=== PATIENT | female | born 1950 | race Caucasian/White ===

== ENCOUNTER 2019-04-22 16:15 | Observation (INO) | payer BC, MEDICARE ==
--- NOTE | 2019-04-22 17:10 | EDM.PDOC ---
ED HPI GENERAL MEDICAL PROBLEM - General Stated Complaint: TRANSFERRED VIA [facility] Time Seen by Provider: 04/22/19 17:00 Source of Information: Reports: Patient, EMS History Limitations: Reports: No Limitations - History of Present Illness INITIAL COMMENTS - FREE TEXT/NARRATIVE: 68-year-old female transferred from [place] with abdominal pain for the past 2 days to be evaluated by surgery with concerns of a bowel obstruction, possibly partial. She's been having pain for the past 2 days, especially on the left side of the abdomen with a lot of burping and decreased bowel movements. No fevers or chills. Onset: Gradual (the last 2-3 days she's had symptoms) Location: Reports: Abdomen Worsens with: Reports: Eating Associated Symptoms: Reports: No Other Symptoms - Related Data Allergies Allergy/AdvReac Type Severity Reaction Status Date / Time amoxicillin Allergy Diarrhea Verified 04/22/19 16:38 Home Meds: Home Meds Amitriptyline [Elavil] 200 mg PO BEDTIME 04/22/19 [History] Past Medical History HEENT History: Reports: Impaired Vision Hematologic History: Reports: B12 Deficiency Dermatologic History: Reports: Other (See Below) Other Dermatologic History: arasipalis - Infectious Disease History Infectious Disease History: Reports: Measles, Mumps - Past Surgical History GI Surgical History: Reports: Bariatric Procedure, Cholecystectomy, Colonoscopy , Hernia Repair/Other Other GI Surgeries/Procedures: had a colonoscopy on 04/02/19 Female Surgical History: Reports: Breast Biopsy, Hysterectomy Social & Family History - Tobacco Use Smoking Status *Q: Never Smoker - Caffeine Use Caffeine Use: Reports: Coffee, Soda, Tea - Recreational Drug Use Recreational Drug Use: No ED ROS GENERAL - Review of Systems Review Of Systems: See Below Constitutional: Denies: Fever, Chills Respiratory: Denies: Shortness of Breath, Cough Cardiovascular: Denies: Chest Pain GI/Abdominal: Reports: Abdominal Pain, Nausea, Other (decreased bowel movements) . Denies: Diarrhea Skin: Reports: No Symptoms ED EXAM, GENERAL - Physical Exam Exam: See Below Exam Limited By: No Limitations General Appearance: Alert, No Apparent Distress Eye Exam: Bilateral Eye: Normal Inspection Head: Atraumatic Respiratory/Chest: No Respiratory Distress, Lungs Clear Cardiovascular: Regular Rate, Rhythm GI/Abdominal: Normal Bowel Sounds, Tender (some tenderness palpation across the upper abdomen especially the left side, no significant distention) Extremities: No: Pedal Edema Neurological: Alert, Oriented Psychiatric: Normal Affect, Normal Mood Skin Exam: Warm, Dry Course - Vital Signs Last Recorded V/S: Last Vital Signs Temp 97.1 F 04/23/19 03:00 Pulse 50 L 04/23/19 03:00 Resp 18 04/23/19 03:00 BP 131/71 04/23/19 03:00 Pulse Ox 99 04/23/19 03:00 - Orders/Labs/Meds Orders: Medication Orders Amitriptyline HCl (Elavil) 200 mg PO BEDTIME ADRYAN Last Admin: 04/22/19 23:17 Dose: 200 mg Fentanyl (Sublimaze) 25 mcg IV Q3H PRN PRN Reason: pain Fentanyl (Sublimaze) 25 mcg IVPUSH Q3H PRN PRN Reason: Pain (severe 7-10) Dextrose/Lactated Ringer's (Dextrose 5%-Lactated Ringers) 1,000 mls @ 125 mls/ hr IV ASDIRECTED [facility] Last Admin: 04/23/19 03:39 Dose: 125 mls/hr Infusion: 04/23/19 03:31 Dose: 125 mls/hr Admin: 04/22/19 19:31 Dose: 125 mls/hr Ondansetron HCl (Zofran) 4 mg IVPUSH Q6H PRN PRN Reason: Nausea Meds: Medications Generic Name Dose Route Start Last Admin Trade Name Freq PRN Reason Stop Dose Admin Amitriptyline HCl 200 mg 04/22/19 21:00 04/22/19 23:17 Elavil PO 200 mg BEDTIME ADRYAN Administration Fentanyl 25 mcg 04/22/19 19:06 Sublimaze IV Q3H PRN pain Fentanyl 25 mcg 04/22/19 19:15 Sublimaze IVPUSH Q3H PRN Pain (severe 7-10) Dextrose/Lactated Ringer's 1,000 mls @ 125 mls/hr 04/22/19 19:15 04/23/19 03: 39 Dextrose 5%-Lactated Ringers IV 125 mls/hr ASDIRECTED ADRYAN Administration Ondansetron HCl 4 mg 04/22/19 19:05 Zofran IVPUSH Q6H PRN Nausea - Re-Assessments/Exams Free Text/Narrative Re-Assessment/Exam: 04/22/19 17:10 Discussed her condition with Dr. Zamora, a CT the abdomen and pelvis without contrast was recommended. This was ordered. 04/22/19 19:00 CT the abdomen was actually fairly nonspecific, patient remained pretty comfortable. She'll be admitted as an outpatient and surgically evaluated in the a.m. She'll continue her regular medications while in the hospital along with Zofran for when necessary nausea and IV fentanyl for when necessary pain. CBC and BMP in a.m. Departure - Departure Time of Disposition: 19:29 Disposition: Admitted As Inpatient 67 Condition: Good Clinical Impression: Abdominal pain Qualifiers: Abdominal location: upper abdomen, unspecified Qualified Code(s): R10.10 - Upper abdominal pain, unspecified - Discharge Information
--- NOTE | 2019-04-22 18:03 | CRLCT ---
HISTORY: Abdominal pain. TECHNIQUE: CT abdomen and pelvis without contrast. COMPARISON: None. FINDINGS: Abdomen: Unenhanced liver, pancreas, spleen, and adrenal glands are unremarkable. 5.7 cm left renal cyst. Moderate right pyelocaliectasis without ureteral dilation. 3 mm nonobstructing calculus in the mid right kidney. Smaller stones or stone debris in a few additional calices on the right. No left collecting system dilation. No bladder calculi. Gastric bypass. No dilated bowel. No acute appendicitis. Mild colonic diverticulosis. No free fluid. No free intraperitoneal gas. Probable ventral hernia repair. Small fat containing ventral hernia at the superior margin of the suspected hernia repair. No lymphadenopathy. Mild atherosclerotic calcification. Abdominal aorta is not dilated. Pelvis: Uterus is absent. Phleboliths. No lymphadenopathy. Musculoskeletal: Osteopenia. Degenerative changes of the spine. Lower chest: Minimal atelectasis or scarring in both lung bases. 5 mm noncalcified pulmonary nodule in the right middle lobe (series 2 image 4). IMPRESSION: 1. Moderate right pyelocaliectasis without ureteral dilation suggestive of ureteropelvic junction obstruction, possibly chronic. Small nonobstructing right renal calculi. 2. Probable ventral hernia repair. Small fat containing ventral hernia at the superior margin of the suspected repair. 3. Colonic diverticulosis. 4. 5 mm pulmonary nodule in the right lung base. If patient is high risk for malignancy, consider follow-up chest CT in 12 months. Dictated by Reymundo Guidry MD @ 04/22/2019 6:02:25 PM Please note that all CT scans at this facility use dose modulation, iterative reconstruction, and/or weight-based dosing when appropriate to reduce radiation dose to as low as reasonably achievable. Dictated by: Reymundo Guidry MD @ 04/22/2019 18:02:30 (Electronically Signed)
[2019-04-22] MEDS ORDERED: Ondansetron 4 MG/2 ML SDV IVPUSH PRN (19:05)
[2019-04-22] MEDS ORDERED: fentaNYL 100 MCG/2 ML SDV IV PRN (19:06)
[2019-04-22] MEDS ORDERED: fentaNYL 100 MCG/2 ML SDV IVPUSH PRN (19:15)
[2019-04-22] MEDS: Dextrose 5%-Lactated Ringers 1,000 ML IV SCH (19:31)
[2019-04-22] MEDS ORDERED: AMITRIPTYLINE 50 MG PO SCH (21:00)
[2019-04-23] MEDS: Dextrose 5%-Lactated Ringers 1,000 ML IV SCH (03:39)
[2019-04-23] MEDS ORDERED: Acetaminophen 325 MG Tab PO PRN (07:46)
[2019-04-23] MEDS ORDERED: Cyanocobalamin (Vitamin B12) 1,000 MCG/ML SDV IM ONE (09:30)
--- NOTE | 2019-04-25 13:40 | DISCH ---
FINAL DIAGNOSIS: Probable small bowel obstruction, spontaneously resolved. SECONDARY DIAGNOSES: 1. Bariatric surgery status. 2. Asymptomatic recurrence of incisional hernia. 3. Marginally low B12 level. 4. A 5 mm right pulmonary nodule. 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 Radiologic workup included plain abdominal x-rays, rather than a CT scan. Her present provider, Dr. Walls, who has dealt with her gastric bypass problems in the past, was not available, and the patient was transferred here for further care. Upon arriving here, she appeared to have likely resolved the bowel obstruction. The patient was having no abdominal pain or significant distention and CT scan showing no evidence of bowel obstruction. The CT scan did show some uncomplicated stones in the right kidney hilum and small asymptomatic recurrence of incisional hernia and a 5 mm pulmonary nodule, the latter was recommended to be followed up with CT scan in roughly 12 months. Overnight, the patient has eaten a solid diet without problems and did move her bowels. Her abdomen is entirely soft and nondistended this morning. The plan will be to have the patient discharged home. She will be instructed to maintain a mechanical soft or low- residue diet for about 2 weeks and then resume more usual diet. She did have her B12 level in lower range of normal and 1000 mcg B12 injection was given. Her ferritin level was also checked and that was 49, which is well within the normal range. She will be instructed to continue her current medications, including amitriptyline, and encouraged resuming supplements in terms of multivitamins, calcium, and iron. She is instructed to touch base with Dr. Walls in Clinic for surgical followup in about a week or so.
== END 2019-04-23 14:26 | disposition home or self-care (01) ==
LOC: JP.ED 16:15 → UNDOADMIN 19:01 → JP.MS 19:01 → UNDOADMOB 19:01 → UNDODISOB 04-23 12:17 → UNDODISIN 04-23 14:26
PROVIDERS: ADMIT Surgery; ATTEND Surgery
DX: R10.12 Left upper quadrant pain (principal); R10.812 Left upper quadrant abdominal tenderness; R11.2 Nausea with vomiting, unspecified; R91.1 Solitary pulmonary nodule; N20.0 Calculus of kidney; E53.8 Deficiency of other specified B group vitamins; I25.10 Atherosclerotic heart disease of native coronary artery without angina pectoris; K43.2 Incisional hernia without obstruction or gangrene; K21.9 Gastro-esophageal reflux disease without esophagitis; K58.9 Irritable bowel syndrome, unspecified; K57.30 Diverticulosis of large intestine without perforation or abscess without bleeding; G47.33 Obstructive sleep apnea (adult) (pediatric); M17.0 Bilateral primary osteoarthritis of knee; E66.01 Morbid (severe) obesity due to excess calories; Z68.32 Body mass index [BMI] 32.0-32.9, adult; Z88.0 Allergy status to penicillin; Z98.84 Bariatric surgery status; Z87.891 Personal history of nicotine dependence; Z79.51 Long term (current) use of inhaled steroids; Z79.899 Other long term (current) drug therapy
CPT/HCPCS: 36415; 74176; 80048; 82607; 82728; 85027; A9270; J3420; J7042; 96360; 96361; 96372; G0378

== ENCOUNTER 2019-11-13 19:24 | Inpatient (IN) | payer MEDICARE, OTHER ==
[2019-11-13] MEDS ORDERED: Ondansetron 4 MG/2 ML SDV IV PRN (20:14)
[2019-11-13] MEDS ORDERED: Sodium Chloride 0.9% 10 ML Syringe FLUSH PRN (20:14)
[2019-11-13] MEDS ORDERED: Lactated Ringers 1,000 ML IV SCH (20:15)
[2019-11-13] MEDS ORDERED: Heparin Sodium/D5W 25,000 UNITS/500 ML BAG IV SCH (20:30)
[2019-11-13] MEDS ORDERED: Heparin Sodium 5,000 Units/ML Vial IVPUSH ONE (20:38)
--- NOTE | 2019-11-13 20:46 | PCM.HP.2 ---
H&P History of Present Illness - General Date of Service: 11/13/19 Admit Problem/Dx: Admission Diagnosis/Problem Admission Diagnosis/Problem Thrombosis of mesenteric vein Source of Information: Patient, Old Records, Provider History Limitations: Reports: No Limitations - History of Present Illness Initial Comments - Free Text/Narative: This 68 year old white female had a RNY GBP in [place] in 2009. She was admitted to Health [facility] in [place], [place] four days ago with left flank pain and left lower quadrant abdominal pain. She was started on a clear liquid diet which she tolerated, but when advanced to regular she had abdominal pain. She was made NPO. She has a surgeon who is willing to care for her in [place] (he has corrected internal hernias and incisional hernias in the past). He, however, is out of town now, so a request was made to transfer her here to [place]. She drove herself down here! A CT scan obtained in [place] showed a SMV thrombosis! She takes Coumadin, but has had none since Wednesday until today. Her INR was 1.[address] [place] scan also was suggestive of an internal hernia, but she looks absolutely benign with normal bowel sounds , no distress what so ever, and no tenderness in her abdomen. She is admitted her to anticoagulate her better with heparin while her warfarin takes better effect. She will be kept NPO tonight. Onset of Symptoms: Reports: Gradual Symptom Onset Date: 11/09/19 Symptom Onset Time: 18:00 Duration of Symptoms: Reports: Day(s):, Improving Location: Reports: Abdomen Quality: Reports: Ache Severity: Mild (Was severe earlier.) Improves with: Reports: None Worsens with: Reports: Eating Context: Reports: Other (Left flank pain. ) - Related Data Allergies/Adverse Reactions: Allergies Allergy/AdvReac Type Severity Reaction Status Date / Time amoxicillin Allergy Diarrhea Verified 04/22/19 16:38 Home Medications: Home Meds Amitriptyline [Elavil] 200 mg PO BEDTIME 04/22/19 [History] Ferrous Sulfate [Iron] 1 tab PO DAILY 11/13/19 [History] Warfarin Sodium [Coumadin] 5 mg PO ASDIRECTED 11/13/19 [History] Warfarin Sodium [Coumadin] 7.5 mg PO ASDIRECTED 11/13/19 [History] Past Medical History HEENT History: Reports: Impaired Vision Gastrointestinal History: Reports: Bowel Obstruction (Operated on for bowel obstruction in [place], [place] in the past.), Cholelithiasis (Cholecystectomy), Other (See Below) (History of RNY GBP in 2009 in [place], [place].) Hematologic History: Reports: B12 Deficiency Dermatologic History: Reports: Other (See Below) Other Dermatologic History: arasipalis - Infectious Disease History Infectious Disease History: Reports: Measles, Mumps - Past Surgical History GI Surgical History: Reports: Bariatric Procedure, Cholecystectomy, Colonoscopy , Hernia Repair/Other Other GI Surgeries/Procedures: had a colonoscopy on 04/02/19 Female Surgical History: Reports: Breast Biopsy, Hysterectomy Social & Family History - Family History Oncologic: Reports: Colon, Other (See Below) (Hematologic) - Caffeine Use Caffeine Use: Reports: Coffee, Soda, Tea H&P Review of Systems - Review of Systems: Review Of Systems: See Below General: Reports: No Symptoms HEENT: Reports: No Symptoms Pulmonary: Reports: No Symptoms Cardiovascular: Reports: No Symptoms Gastrointestinal: Reports: Flatus, Other (Had BM in [place], [place] while driving here to [place]. ). Denies: Abdominal Pain (Abdominal pain resolved. ) Genitourinary: Reports: No Symptoms Musculoskeletal: Reports: No Symptoms Skin: Reports: No Symptoms Psychiatric: Reports: No Symptoms Neurological: Reports: No Symptoms Hematologic/Lymphatic: Reports: No Symptoms Immunologic: Reports: No Symptoms Exam - Exam Exam: See Below - Exam Quality Assessment: Other (Anticoagulated, but INR only 1.8 in [place]. ) General: Alert, Oriented, Cooperative, Other (No distress. Appears comfortable. ). No: Mild Distress, Moderate Distress, Severe Distress Lungs: Clear to Auscultation, Normal Respiratory Effort Cardiovascular: Regular Rate, Regular Rhythm, Systolic Murmur GI/Abdominal Exam: Normal Bowel Sounds, Soft, Non-Tender Back Exam: Normal Inspection Extremities: Pedal Edema (Had compression hose on. ) Skin: Warm, Dry, Intact Neuro Extensive - Mental Status: Alert, Oriented x3, Normal Mood/Affect Psychiatric: Alert, Normal Affect, Normal Mood - Problem List (1) Thrombosis SNOMED Code(s): 988345579 ICD Code: I82.90 - ACUTE EMBOLISM AND THROMBOSIS OF UNSPECIFIED VEIN Status : Acute Current Visit: Yes (2) Abdominal pain SNOMED Code(s): 06766810 ICD Code: R10.9 - UNSPECIFIED ABDOMINAL PAIN Status: Acute Current Visit : No Qualifiers: Abdominal location: upper abdomen, unspecified Qualified Code(s): R10.10 - Upper abdominal pain, unspecified Problem List Initiated/Reviewed/Updated: Yes Orders Last 24hrs: Active Orders 24 hr Category Date Time Status Patient Status [ADT] Routine ADT 11/13/19 20:26 Ordered Anticoag Warfarin Education *Q [RC] DAILY Care 11/13/19 20:14 Ordered Height and Weight [RC] DAILY Care 11/13/19 20:14 Ordered Intake and Output [RC] QSHIFT Care 11/13/19 20:28 Ordered May Shower [RC] ASDIRECTED Care 11/13/19 20:14 Ordered Notify Provider Consults [RC] ASDIRECTED Care 11/13/19 20:34 Ordered Notify Provider Vital Signs [RC] ASDIRECTED Care 11/13/19 20:28 Ordered Oxygen Therapy [RC] PRN Care 11/13/19 20:26 Ordered Peripheral IV Care [RC] . DIRECTED Care 11/13/19 20:30 Ordered Up ad Lisa [RC] ASDIRECTED Care 11/13/19 20:14 Ordered VTE/DVT Education [RC] Per Unit Routine Care 11/13/19 20:26 Ordered Vital Signs [RC] Q4H Care 11/13/19 20:26 Ordered Consult to Physician [CONS] Routine Cons 11/14/19 07:00 Ordered Nothing per Oral Now Diet [DIET] Diet 11/13/19 Dinner Ordered CBC W/O DIFF,HEMOGRAM [HEME] DAILY Lab 11/14/19 05:11 Ordered CBC W/O DIFF,HEMOGRAM [HEME] DAILY Lab 11/15/19 05:11 Ordered CBC W/O DIFF,HEMOGRAM [HEME] DAILY Lab 11/16/19 05:11 Ordered CBC W/O DIFF,HEMOGRAM [HEME] Stat Lab 11/13/19 20:14 Ordered COMPREHENSIVE METABOLIC PN,CMP [CHEM] Stat Lab 11/13/19 20:14 Ordered INR,PT,PROTHROMBIN TIME [COAG] DAILY Lab 11/14/19 05:11 Ordered INR,PT,PROTHROMBIN TIME [COAG] DAILY Lab 11/15/19 05:11 Ordered INR,PT,PROTHROMBIN TIME [COAG] DAILY Lab 11/16/19 05:11 Ordered INR,PT,PROTHROMBIN TIME [COAG] Stat Lab 11/13/19 20:14 Ordered PTT,PARTIAL THROMBOPLSTIN TIME [COAG] DAILY Lab 11/14/19 05:11 Ordered PTT,PARTIAL THROMBOPLSTIN TIME [COAG] DAILY Lab 11/15/19 05:11 Ordered PTT,PARTIAL THROMBOPLSTIN TIME [COAG] DAILY Lab 11/16/19 05:11 Ordered PTT,PARTIAL THROMBOPLSTIN TIME [COAG] Stat Lab 11/13/19 20:14 Ordered PTT,PARTIAL THROMBOPLSTIN TIME [COAG] Stat Lab 11/13/19 20:30 Ordered Heparin Sodium Med 11/13/19 20:38 Once 5,000 units IVPUSH ONETIME ONE Heparin Sodium/D5W [Heparin 25,000 Units in D5W 500 ML] Med 11/13/19 20:30 Ordered 25,000 units in 500 ml IV TITRATE Lactated Ringers @ 125 MLS/HR(1000ml) Med 11/13/19 20:15 Ordered Lactated Ringers [Ringers, Lactated] 1,000 ml IV ASDIRECTED Ondansetron [Zofran] Med 11/13/19 20:14 Ordered 4 mg IV Q6H PRN Sodium Chloride 0.9% [Saline Flush] Med 11/13/19 20:14 Ordered 10 ml FLUSH ASDIRECTED PRN Warfarin [Coumadin] Med 11/14/19 13:00 Ordered 7.5 mg PO DAILY@1300 Peripheral IV Insertion Adult [OM.PC] Routine Oth 11/13/19 20:14 Ordered Resuscitation Status Routine Resus Stat 11/13/19 20:14 Ordered Medication Orders Heparin Sodium (Porcine) (Heparin Sodium) 5,000 units IVPUSH ONETIME ONE Stop: 11/13/19 20:39 Heparin Sodium/Dextrose (Heparin 25,000 Units In D5w 500 Ml) 25,000 units in 500 mls @ 0 mls/hr IV TITRATE ADRYAN; Protocol Lactated Ringer's (Ringers, Lactated) 1,000 mls @ 125 mls/hr IV ASDIRECTED ADRYAN Ondansetron HCl (Zofran) 4 mg IV Q6H PRN PRN Reason: Nausea/Vomiting Sodium Chloride (Saline Flush) 10 ml FLUSH ASDIRECTED PRN PRN Reason: Keep Vein Open Warfarin Sodium (Coumadin) 7.5 mg PO DAILY@1300 [facility] Assessment/Plan Comment:: She has a benign appearing abdomen. There is thrombus seen in her SMV. Her INR is only 1.8 and she is chronically anticoagulated do to DVT. She will be anticoagulated further with heparin while her warfarin takes effect. NPO tonight. - Mortality Measure Prognosis:: Good
[2019-11-13] MEDS: Dextrose 5%-Lactated Ringers 1,000 ML IV SCH (22:02)
[2019-11-14] MEDS: Dextrose 5%-Lactated Ringers 1,000 ML IV SCH ×2 (04:26→13:13)
--- NOTE | 2019-11-14 05:49 | PCM.PN ---
- General Info Date of Service: 11/14/19 Admission Dx/Problem (Free Text): SMV Thrombosis Functional Status: Reports: Pain Controlled, Ambulating, Urinating. Denies: Tolerating Diet (NPO) - Review of Systems General: Reports: No Symptoms HEENT: Reports: No Symptoms Pulmonary: Reports: No Symptoms Cardiovascular: Reports: No Symptoms Gastrointestinal: Reports: Other (Some left flank pain. Having BM's) Genitourinary: Reports: No Symptoms Musculoskeletal: Reports: No Symptoms Skin: Reports: No Symptoms Neurological: Reports: No Symptoms Psychiatric: Reports: No Symptoms - Patient Data Vitals - Most Recent: Last Vital Signs Temp 95.0 F L 11/14/19 03:00 Pulse 72 11/14/19 03:00 Resp 16 11/14/19 03:00 BP 147/91 H 11/14/19 03:00 Pulse Ox 99 11/14/19 03:00 Weight - Most Recent: 203 lb 7.787 oz I&O - Last 24 Hours: Intake & Output 11/13/19 11/13/19 11/14/19 14:59 22:59 06:59 Intake Total 1000 Output Total 500 Balance 500 Lab Results Last 24 Hours: Laboratory Results - last 24 hr 11/13/19 11/13/19 11/13/19 Range/Units 20:40 20:40 20:40 WBC 5.0 (4.5-11.0) K/uL RBC 3.93 (3.30-5.50) M/uL Hgb 12.2 (12.0-15.0) g/dL Hct 39.3 (36.0-48.0) % MCV 100 H (80-98) fL MCH 31 (27-31) pg MCHC 31 L (32-36) % Plt Count 205 (150-400) K/uL PT 15.1 H (9.5-12.0) sec INR 1.43 H (0.80-1.20) APTT 29.2 (27.0-36.0) sec Sodium 141 (140-148) mmol/L Potassium 3.4 L (3.6-5.2) mmol/L Chloride 104 (100-108) mmol/L Carbon Dioxide 28 (21-32) mmol/L Anion Gap 12.4 (5.0-14.0) mmol/L BUN 5 L (7-18) mg/dL Creatinine 0.6 (0.6-1.0) mg/dL Est Cr Clr Drug Dosing 85.18 mL/min Estimated GFR (MDRD) > 60 (>60) Glucose 109 H (74-106) mg/dL Calcium 8.2 L (8.5-10.1) mg/dL Total Bilirubin 0.6 (0.2-1.0) mg/dL AST 22 (15-37) U/L ALT 33 (12-78) U/L Alkaline Phosphatase 108 (46-116) U/L Total Protein 6.1 L (6.4-8.2) g/dL Albumin 3.0 L (3.4-5.0) g/dL Globulin 3.1 (2.3-3.5) g/dL Albumin/Globulin Ratio 1.0 L (1.2-2.2) 11/14/19 11/14/19 11/14/19 Range/Units 03:33 03:33 03:33 WBC 4.8 (4.5-11.0) K/uL RBC 3.61 (3.30-5.50) M/uL Hgb 11.2 L (12.0-15.0) g/dL Hct 36.3 (36.0-48.0) % MCV 101 H (80-98) fL MCH 31 (27-31) pg MCHC 31 L (32-36) % Plt Count 190 (150-400) K/uL PT 16.3 H (9.5-12.0) sec INR 1.55 H (0.80-1.20) APTT 110.5 H* (27.0-36.0) sec Sodium (140-148) mmol/L Potassium (3.6-5.2) mmol/L Chloride (100-108) mmol/L Carbon Dioxide (21-32) mmol/L Anion Gap (5.0-14.0) mmol/L BUN (7-18) mg/dL Creatinine (0.6-1.0) mg/dL Est Cr Clr Drug Dosing mL/min Estimated GFR (MDRD) (>60) Glucose (74-106) mg/dL Calcium (8.5-10.1) mg/dL Total Bilirubin (0.2-1.0) mg/dL AST (15-37) U/L ALT (12-78) U/L Alkaline Phosphatase (46-116) U/L Total Protein (6.4-8.2) g/dL Albumin (3.4-5.0) g/dL Globulin (2.3-3.5) g/dL Albumin/Globulin Ratio (1.2-2.2) Med Orders - Current: Current Medications Amitriptyline HCl (Elavil) 200 mg PO BEDTIME ADRYAN Last Admin: 11/13/19 22:01 Dose: 200 mg Heparin Sodium (Porcine) (Heparin Sodium) 5,000 units IVPUSH ONETIME ONE Stop: 11/13/19 20:39 Last Admin: 11/13/19 21:36 Dose: 5,000 units Heparin Sodium/Dextrose (Heparin 25,000 Units In D5w 500 Ml) 25,000 units in 500 mls @ 26 mls/hr IV TITRATE ADRYAN; Protocol Last Titration: 11/14/19 05:06 Dose: 1,010 units/hr, 20.2 mls/hr Dextrose/Lactated Ringer's (Dextrose 5%-Lactated Ringers) 1,000 mls @ 125 mls/ hr IV ASDIRECTED ADRYAN Last Admin: 11/14/19 04:26 Dose: 125 mls/hr Ondansetron HCl (Zofran) 4 mg IV Q6H PRN PRN Reason: Nausea/Vomiting Sodium Chloride (Saline Flush) 10 ml FLUSH ASDIRECTED PRN PRN Reason: Keep Vein Open Warfarin Sodium (Coumadin) 7.5 mg PO DAILY@1300 ADRYAN Discontinued Medications Lactated Ringer's (Ringers, Lactated) 1,000 mls @ 125 mls/hr IV ASDIRECTED ADRYAN - Exam Quality Assessment: DVT Prophylaxis (Fully anticoagulated) General: Alert, Oriented, Cooperative, No Acute Distress Lungs: Clear to Auscultation Cardiovascular: Regular Rate, Regular Rhythm, Murmurs GI/Abdominal Exam: Normal Bowel Sounds, Soft, Non-Tender Back Exam: Normal Inspection Skin: Warm, Dry, Intact Neurological: No New Focal Deficit Psy/Mental Status: Alert, Normal Affect, Normal Mood Sepsis Event Note - Evaluation Sepsis Screening Result: No Definite Risk - Focused Exam Vital Signs: Vital Signs Temp Pulse Resp BP Pulse Ox 11/14/19 03:00 95.0 F L 72 16 147/91 H 99 11/13/19 23:46 97.5 F 67 16 130/78 96 11/13/19 20:26 97 F 81 18 150/82 H 98 Date Exam was Performed: 11/14/19 Time Exam was Performed: 05:47 - Problem List & Annotations (1) Thrombosis SNOMED Code(s): 285836554 Code(s): I82.90 - ACUTE EMBOLISM AND THROMBOSIS OF UNSPECIFIED VEIN Status : Acute Current Visit: Yes (2) Abdominal pain SNOMED Code(s): 41454415 Code(s): R10.9 - UNSPECIFIED ABDOMINAL PAIN Status: Acute Current Visit: No Qualifiers: Abdominal location: upper abdomen, unspecified Qualified Code(s): R10.10 - Upper abdominal pain, unspecified - Problem List Review Problem List Initiated/Reviewed/Updated: Yes - My Orders Last 24 Hours: My Active Orders 11/13/19 20:14 Anticoag Warfarin Education *Q [RC] DAILY Height and Weight [RC] DAILY May Shower [RC] ASDIRECTED Up ad Lisa [RC] ASDIRECTED Ondansetron [Zofran] 4 mg IV Q6H PRN Sodium Chloride 0.9% [Saline Flush] 10 ml FLUSH ASDIRECTED PRN Peripheral IV Insertion Adult [OM.PC] Routine Resuscitation Status Routine 11/13/19 20:26 Patient Status [ADT] Routine Oxygen Therapy [RC] PRN VTE/DVT Education [RC] Per Unit Routine Vital Signs [RC] Q4H 11/13/19 20:28 Intake and Output [RC] QSHIFT Notify Provider Vital Signs [RC] ASDIRECTED 11/13/19 20:30 Peripheral IV Care [RC] . DIRECTED Heparin Sodium/D5W [Heparin 25,000 Units in D5W 500 ML] 25,000 units in 500 ml IV TITRATE 11/13/19 20:34 Notify Provider Consults [RC] ASDIRECTED 11/13/19 20:38 Heparin Sodium 5,000 units IVPUSH ONETIME ONE 11/13/19 21:43 Amitriptyline [Elavil] 200 mg PO BEDTIME 11/13/19 21:45 Dextrose 5%-Lactated Ringers 1,000 ml IV ASDIRECTED 11/13/19 Dinner Nothing per Oral Now Diet [DIET] 11/14/19 07:00 Consult to Physician [CONS] Routine 11/14/19 09:00 PTT,PARTIAL THROMBOPLSTIN TIME [COAG] Routine 11/14/19 13:00 Warfarin [Coumadin] 7.5 mg PO DAILY@1300 11/15/19 05:11 CBC W/O DIFF,HEMOGRAM [HEME] DAILY INR,PT,PROTHROMBIN TIME [COAG] DAILY PTT,PARTIAL THROMBOPLSTIN TIME [COAG] DAILY 11/16/19 05:11 CBC W/O DIFF,HEMOGRAM [HEME] DAILY INR,PT,PROTHROMBIN TIME [COAG] DAILY PTT,PARTIAL THROMBOPLSTIN TIME [COAG] DAILY - Assessment Assessment:: She is now fully anticoagulated. - Plan Plan:: She has a benign appearing abdomen. There is thrombus seen in her SMV. Her INR is only 1.8 and she is chronically anticoagulated do to DVT. She will be anticoagulated further with heparin while her warfarin takes effect. NPO tonight.
[2019-11-14] MEDS ORDERED: fentaNYL 250 MCG/5 ML SDV ONE ×2 (10:57→16:05)
[2019-11-14] MEDS ORDERED: Potassium Chloride 20 MEQ, Lidocaine 1% 2 ML in Sodium Chloride 0.9% 100 ML IV ONE (11:00)
[2019-11-14] MEDS ORDERED: Meropenem 500 MG SDV ONE (12:24)
[2019-11-14] MEDS ORDERED: Lidocaine 1% with EPINEPHrine 1:100,000 50 ML MDV ONE (12:25)
[2019-11-14] MEDS ORDERED: Bupivacaine 0.5% 50 ML MDV ONE (12:25)
[2019-11-14] MEDS ORDERED: Warfarin 2.5 MG Tab PO SCH (13:00)
[2019-11-14] MEDS ORDERED: cefOXitin 2 GM in Sodium Chloride 0.9% 50 ML IV ONE (16:00)
[2019-11-14] MEDS ORDERED: Ropivacaine 46 ML, dexAMETHasone 8 MG, EPINEPHrine 0.4 MG, Sodium Chloride 0.9% 31.6 ML NERVRT SCH ×4 (16:00)
[2019-11-14] MEDS ORDERED: Ketamine 50 MG in Sodium Chloride 0.9% 49.5 ML IV SCH (16:00)
[2019-11-14] MEDS ORDERED: Ketamine 500 MG/5 ML MDV IV SCH (16:00)
[2019-11-14] MEDS ORDERED: Lidocaine 2% 100 MG/5 ML Syringe IVPUSH SCH (16:00)
[2019-11-14] MEDS ORDERED: Glycopyrrolate 0.2 MG/ML 5 ML MDV ONE (16:30)
[2019-11-14] MEDS ORDERED: Dexamethasone 4 MG/ML SDV ONE (16:30)
[2019-11-14] MEDS ORDERED: Neostigmine Methylsulfate 1 MG/ML 5 ML Syringe ONE (16:30)
[2019-11-14] MEDS ORDERED: Ondansetron 4 MG/2 ML SDV ONE (16:30)
[2019-11-14] MEDS ORDERED: Propofol 200 MG/20 ML SDV ONE (16:30)
[2019-11-14] MEDS ORDERED: Rocuronium 50 MG/5 ML Vial ONE (16:30)
[2019-11-14] MEDS ORDERED: Succinylcholine 200 MG/10 ML MDV ONE (16:30)
[2019-11-14] MEDS ORDERED: Lidocaine 1% 2 ML ONE (17:03)
[2019-11-14] MEDS ORDERED: Lactated Ringers 1,000 ML ONE (17:43)
[2019-11-14] MEDS ORDERED: hydrOXYzine HCL 100 MG/2 ML SDV IM ONE (17:57)
[2019-11-14] MEDS ORDERED: fentaNYL 100 MCG/2 ML SDV IVPUSH ONE ×2 (17:58→18:23)
[2019-11-14] MEDS ORDERED: Meperidine PF 100 MG/ML Syringe IM ONE (18:27)
[2019-11-14] MEDS ORDERED: Dextrose 5%-Lactated Ringers 1,000 ML IV SCH ×3 (19:18→19:45)
[2019-11-14] MEDS ORDERED: hydrOXYzine HCL 100 MG/2 ML SDV IM PRN (19:34)
[2019-11-14] MEDS ORDERED: Metoclopramide 10 MG/2 ML SDV IVPUSH PRN (19:34)
[2019-11-14] MEDS ORDERED: diphenhydrAMINE 50 MG/ML SDV IVPUSH PRN (19:34)
[2019-11-14] MEDS ORDERED: Labetalol 20 MG/4 ML Syringe IVPUSH PRN (19:34)
[2019-11-14] MEDS ORDERED: MVI, Adult with Vitamin K 10 ML, Thiamine 200 MG, Chromium/Copper/Mang/Selen/Zn 1 ML in... IV SCH ×4 (19:34)
[2019-11-14] MEDS: Lidocaine 0.4%/D5W 2 GM/500 ML BAG IV SCH ×5 (19:43→20:24)
[2019-11-14] MEDS ORDERED: cefOXitin 2 GM in Sodium Chloride 0.9% 50 ML IV SCH (19:45)
[2019-11-14] MEDS: Ondansetron 4 MG/2 ML SDV IVPUSH PRN (19:56)
[2019-11-14] MEDS: cefOXitin 2 GM in Sodium Chloride 0.9% 50 ML IV SCH (20:08)
[2019-11-14] MEDS ORDERED: Heparin Sodium/D5W 500 ML IV SCH (20:15)
[2019-11-14] MEDS: Acetaminophen 325 MG Tab PO SCH (20:44)
[2019-11-14] MEDS ORDERED: HYDROmorphone 1 MG/ML Syringe IV PRN (20:44)
[2019-11-14] MEDS ORDERED: HYDROmorphone 0.5 MG/0.5 ML Syringe IVPUSH PRN (20:44)
[2019-11-14] MEDS ORDERED: Pantoprazole 40 MG Vial IVPUSH SCH (21:00)
[2019-11-15] MEDS: cefOXitin 2 GM in Sodium Chloride 0.9% 50 ML IV SCH ×4 (03:19→21:38)
[2019-11-15] MEDS ORDERED: Iopamidol 612 MG/ML 50 ML SDV PO STA (03:24)
[2019-11-15] MEDS: Acetaminophen 325 MG Tab PO SCH ×4 (04:03→21:45)
--- NOTE | 2019-11-15 04:19 | CRLCR ---
INDICATION: Status post Joyce-en-Y revision TECHNIQUE: Abdomen modified upper GI COMPARISON: None FINDINGS: Normal transit of oral contrast across the GE junction and into the small bowel with no evidence of leakage. IMPRESSION: No evidence for extravasation of contrast. Dictated by Flako Connors MD @ 11/15/2019 4:17:13 AM Dictated by: Flako Connors MD @ 11/15/2019 04:17:25 (Electronically Signed)
[2019-11-15] MEDS: Heparin Sodium/D5W 25,000 UNITS/500 ML BAG IV SCH ×2 (05:28→20:14)
[2019-11-15] MEDS ORDERED: Warfarin 5 MG Tab PO ONE (06:46)
[2019-11-15] MEDS ORDERED: Furosemide 20 MG/2 ML VIAL IVPUSH ONE (07:30)
[2019-11-15] MEDS ORDERED: Potassium Phosphates 3 mMole/ML 15 ML SDV SCH (08:00)
--- NOTE | 2019-11-15 08:01 | PN ---
DATE OF SERVICE: 11/15/2019 SUBJECTIVE: Leda is postoperative day #1. Vital signs have been stable. Her Yang catheter has been removed. She states she feels still has pain in her urethra from the Yang catheter. Upper GI this morning was normal. Continues to have lidocaine running. O2 sats were 94% to 98% on 2 L. She did need the oxygen and was not able to wear her CPAP due to some equipment on her tubing missing. LABORATORY DATA: Labs this morning, hemoglobin 11.8. PT 18.4, INR is 1.76, APTT is 46.2. Potassium is 3.4, phosphorus 3.3, and magnesium is 1.5. BNP is 1168. OBJECTIVE: GENERAL: Leda Iverson is a 69-year-old female. She is alert, orientated. VITAL SIGNS: Temperature from 0400 is 96.5, pulse at 0600 of 69, respirations 15, blood pressure 130/61, O2 saturations by pulse oximetry 98% on 2 L of O2. HEENT: Negative. NECK: Supple. HEART: Regular rate and rhythm. LUNGS: Clear. ABDOMEN: Dressings dry and intact. DIDI drain is draining a red drainage of 125 mL for the past 24 hours. Yang was removed. She has not voided yet. EXTREMITIES: SCDs are on and there is no peripheral edema. ASSESSMENT: 1. Exploratory laparotomy with: a. Reconstruction of small bowel volvulus with closure of internal hernia. b. Revision of the jejunojejunostomy component of the Joyce-en-Y gastric bypass. c. Repair of recurrent incarcerated incisional hernia. d. Removal of intraperitoneal mesh. e. Placement of Interceed mesh. f. Excision of abdominal wall hemangioma. POSTOPERATIVE DIAGNOSES: 1. Partial small bowel obstruction secondary to small bowel volvulus. 2. Decompression of small bowel at the jejunojejunostomy. 3. Excision of intraabdominal adhesions. 4. Recurrent incarcerated incisional hernia. 5. Potentially contaminated intraperitoneal mesh. 6. Bloody hemangioma, right upper abdominal wall 0.5 cm. Date of surgery: 11/14/2019. Surgeon: Payam Zamora MD. PLAN: 1. Call Dr. Payam Zamora with results of blood clotting labs and that will be done at 11:30 a.m. 2. Coumadin 7.5 mg p.o. one time today. 3. Communication order: 3 med cups per hour, 1 every 20 minutes, record at bed side. 4. Step 2 gastric bypass diet with no cereal. 5. Check CBC, CMP, phos, and BNP in a.m. 6. Decrease IV to 100 mL per hour. 7. Lasix 10 mg IV push one time. 8. Dilaudid 2 to 4 mg p.o. q.4 hours p.r.n. pain. 9. Magnesium sulfate 2 g IV q.6 hours x72 hours. 10.Zofran ODT 4 mg sublingual q.4 hours p.r.n. nausea and vomiting. 11.K-Phos 60 mEq orally 1 time today. 12.Discontinue IV Dilaudid and discontinue n.p.o. 13.Good pulmonary toilet. 14.We will evaluate p.r.n. or in a.m. Respiratory therapist will look at the CPAP machine and see what needs to be added, so she can use that in the hospital. Kat Lopez PA-C /[id number]
[2019-11-15] MEDS: Dextrose 5%-Lactated Ringers 1,000 ML IV SCH ×2 (08:13→21:42)
[2019-11-15] MEDS: Magnesium Sulfate/Water 2 GM in Premix Bag 1 BAG IV SCH ×3 (08:56→21:42)
[2019-11-15] MEDS: SCOPOLAMINE PATCH CHECK TOP SCH (09:00)
[2019-11-15] MEDS ORDERED: Potassium Phosphates 3 mMole/ML 5 ML SDV ONE (09:00)
[2019-11-15] MEDS: Potassium Phosphates 3 mMole/ML 15 ML SDV SCH ×3 (10:14→16:00)
[2019-11-15] MEDS: HYDROmorphone 2 MG Tab PO PRN ×3 (10:18→19:25)
[2019-11-15] MEDS: Ondansetron 4 MG Tab.DIS PO PRN (10:34)
[2019-11-15] MEDS: MVI, Adult with Vitamin K 10 ML, Thiamine 200 MG, Chromium/Copper/Mang/Selen/Zn 1 ML in... IV SCH ×4 (11:42)
[2019-11-15] MEDS ORDERED: Warfarin 2.5 MG, Warfarin 5 MG PO SCH ×2 (13:00)
[2019-11-15] MEDS: Ondansetron 4 MG/2 ML SDV IVPUSH PRN (14:52)
[2019-11-15] MEDS: Pantoprazole 40 MG Tab.CR PO SCH (21:47)
[2019-11-16] MEDS: HYDROmorphone 2 MG Tab PO PRN ×5 (00:04→19:12)
[2019-11-16] MEDS: cefOXitin 2 GM in Sodium Chloride 0.9% 50 ML IV SCH ×4 (02:43→21:15)
[2019-11-16] MEDS: Magnesium Sulfate/Water 2 GM in Premix Bag 1 BAG IV SCH ×4 (02:43→19:17)
[2019-11-16] MEDS: Acetaminophen 325 MG Tab PO SCH ×4 (04:53→21:34)
[2019-11-16] MEDS: Docusate Sodium 100 MG Cap PO SCH ×2 (08:31→21:24)
[2019-11-16] MEDS: Potassium Chloride 20 MEQ Tab.ER PO SCH ×3 (08:31→21:23)
[2019-11-16] MEDS: Bisacodyl 5 MG Tab PO SCH ×2 (08:31→21:24)
[2019-11-16] MEDS ORDERED: Cyanocobalamin (Vitamin B12) 1,000 MCG/ML SDV IM ONE (09:00)
[2019-11-16] MEDS ORDERED: Sodium Chloride 0.9% 500 ML IV SCH (09:03)
[2019-11-16] MEDS: SCOPOLAMINE PATCH CHECK TOP SCH ×2 (09:15→09:20)
[2019-11-16] MEDS ORDERED: Warfarin 5 MG Tab PO ONE (11:00)
[2019-11-16] MEDS: MVI, Adult with Vitamin K 10 ML, Thiamine 200 MG, Chromium/Copper/Mang/Selen/Zn 1 ML in... IV SCH ×4 (11:22)
--- NOTE | 2019-11-16 11:26 | PN ---
DATE OF SERVICE: 11/16/2019 SUBJECTIVE: Leda's vital signs have been stable. Afebrile. Oral intake 1220. Urine output 2700. DIDI drain put out 110 mL of a red bloody drainage. Pain is controlled, taking Dilaudid 4 mg as needed every 4 hours. She has no other questions or concerns. OBJECTIVE: GENERAL: Leda Iverson is a pleasant 69-year-old female. VITAL SIGNS: TPR is 96.6, 65, 16, blood pressure 129/69. HEENT: Negative. NECK: Supple. HEART: Regular rate and rhythm. LUNGS: Clear. ABDOMEN: Dressing dry and intact. Abdominal binder has been on. Aquacel is on. DIDI drain as above. EXTREMITIES: SCDs are on. There is no peripheral edema. ASSESSMENT: 1. Exploratory laparotomy with: a. Reconstruction of small bowel volvulus with closure of internal hernia. b. Revision of the jejunojejunostomy component of the Joyce-en-Y gastric bypass. c. Repair of recurrent incarcerated incisional hernia. d. Removal of intraperitoneal mesh. e. Placement of Interceed mesh. f. Excision of abdominal wall hemangioma. POSTOPERATIVE DIAGNOSES: 1. Partial small bowel obstruction secondary to small bowel volvulus. 2. Decompression of small bowel at the jejunojejunostomy. 3. Excision of intraabdominal adhesions. 4. Recurrent incarcerated incisional hernia. 5. Potentially contaminated intraperitoneal mesh. 6. Bloody hemangioma, right upper abdominal wall 0.5 cm. Date of surgery: 11/14/2019. Surgeon: Payam Zamora MD. PLAN: 1. Coumadin 10 mg p.o. one time today. 2. KCl 20 mEq p.o. t.i.d. 3. Saline lock IV. 4. Discontinue 3 med cups per hour. 5. Step 3 gastric bypass diet. 6. Change Aquacel dressing and replace with a new one. 7. Dulcolax 10 mg tablets b.i.d. until the patient has a bowel movement. 8. Colace 100 mg b.i.d. p.o. 9. May shower. 10.Check CBC, CMP, phosphorus, PT, PTT, APTT, and BNP in a.m. 11.Good pulmonary toilet. 12.Continue ambulation and using incentive spirometer. 13.We will evaluate p.r.n. or in a.m. Kat Norby, PA-C /[id number]
--- NOTE | 2019-11-16 14:03 | PN ---
DATE OF SERVICE: 11/14/2019 This is a 69-year-old, who is many years status post Joyce-en-Y gastric bypass. She had previously 3 laparotomies in [place] for problems related to small bowel volvulus, as well as incisional hernia issues. She was admitted to the hospital over the summer with a picture of small bowel obstruction, which resolved. She now presented to the emergency room yesterday at [place], again with a picture of small bowel obstruction. The patient appears to most likely have a small bowel volvulus. One additional aspect of this patient's care is that she has been diagnosed with superior mesenteric venous thrombosis, which appears at least at some point to have extended up somewhat into the portal vein, and she has been chronically coumadinized. After admission here, she was started on IV heparin and at 10 this morning, it remains in place. At this point, the plan will be to proceed with a laparotomy later today. We will hold the heparin at this point, given 6 hours, the pro-time obtained earlier today was just above the therapeutic level, so I do not think that needs to be further corrected. The plan will be to proceed with exploratory laparotomy. The patient clinically has some recurrent hernia formation as well as previously-placed mesh. We will most likely repair the hernia again, and we may need to remove the mesh if small bowel resection is required, and then repair the hernias without a mesh placement. As discussed with the patient, if the area around the jejunojejunostomy appears to be ischemic or decompensated, we will likely revise that and in so doing, set up the limb lengths so that she would either have more of a stable or lesser long-term weight. She is aware that the side effects of this would be typically some increased frequency of bowel movements and somewhat more close attention paid to micronutrient issues postoperatively. Otherwise, potential risks of the procedure including bleeding, infection, leaks from various GI tract closures, problems with recurrent bowel obstruction over time, as well as the possibility of cardiopulmonary, septic, or hemorrhagic complications leading to were discussed, and the patient wishes to proceed. Surgery will be undertaken around 4 today after the heparin has been turned off for 6 hours. Payam Zamora MD /[id number]
--- NOTE | 2019-11-16 14:09 | OR ---
DATE OF PROCEDURE: 11/14/2019 SURGEON: Payam Zamora MD PREOPERATIVE DIAGNOSIS: Partial small bowel obstruction. POSTOPERATIVE DIAGNOSES: 1. Partial small bowel obstruction secondary to small bowel volvulus. 2. Decompensation of small bowel at jejunojejunostomy. 3. Extensive intraabdominal adhesions. 4. Recurrent incarcerated incisional hernia. 5. Potentially contaminated intraperitoneal mesh. 6. Bleeding cutaneous hemangioma, right upper abdomen, adjacent to midline incision. OPERATIVE PROCEDURE: 1. Exploratory laparotomy with: a. Reduction of small bowel volvulus and closure of internal hernia (85251). b. Revision of jejunojejunostomy component of Joyce-en-Y gastric bypass (08147). c. Repair of recurrent incarcerated incisional hernia (22308). d. Removal of intraperitoneal mesh (59562). e. Placement of Interceed mesh to limit recurrent adhesion formation between pelvic and abdominal wall and underlying viscera (70553). 2. Excision of abdominal wall hemangioma (83268). INDICATION FOR PROCEDURE: Please see note dictated earlier today. DETAILS OF PROCEDURE: The patient was taken to the operating room, and after general endotracheal anesthesia was induced, a Yang catheter was inserted and the abdomen prepped and draped. The previous midline incision was then reused and then extended slightly superiorly. This was carried down through the skin and subcutaneous tissue and down to an area of recurrent hernia formation above the previously placed mesh. This contained a component of some incarcerated omentum and preperitoneal fat which was excised. This then allowed entrance into the abdomen. There were fairly extensive adhesions primarily between the omentum and the underlying abdominal wall mesh. The omental adhesions were divided with a combination of electrocautery and surgical lewis, and once the initial adhesions were freed up, the small bowel anatomy was evaluated. The patient was noted to have a small bowel volvulus involving the jejunojejunostomy and much of both the Joyce limb and the common limb in a plane underneath the leaves of the jejunojejunostomy in a left to right manner. This was then reduced. The bowels were all found to be viable, but the area around the jejunostomy was quite decompensated with all the bowel being strikingly dilated and fairly immobile. Given this, at this point, a decision was made to proceed with revision of the jejunojejunostomy, dividing the Joyce limb away from the jejunojejunostomy, and then reimplanting it somewhat more distally as the remaining portion of the original jejunojejunostomy did seem to contain only biliopancreatic secretions. Despite it being relatively nonmotile, it was felt to be satisfactorily left in place. With the decision to proceed with resectional procedure, the intraperitoneal mesh was then excised from the abdominal wall and sent as a separate specimen. This contained some attached stapled-off omentum with it. At this point, the Joyce limb was mapped out to be 80 cm. We then walked back from the ileocecal valve 250 cm and chose that point for the new Joyce-en-Y jejunojejunostomy, giving the patient 330 cm of elementary limb, most of which was common limb. The biliopancreatic limb was mapped out at 240 cm. At that level, the [id number] enteroenterostomy was accomplished with an internal firing of the Endo-ITZ 60 mm stapler followed by a 30 mm internal firing, and the common opening then closed transversely with the same stapler. The angles of the anastomosis were reinforced with some 3-0 Vicryl stitch to provide some permanency. The mesenteric defect was then closed with a running 2-0 silk stitch. At this point, no further problems were noted intraperitoneally. The abdomen was irrigated with antibiotic-containing saline solution. At this point, hemostasis appeared to be quite good. The anastomosis was then reinforced with some fibrin sealant as was the raw surgical staple line where the Jocye limb had been taken down from the previous jejunojejunostomy to try to limit postoperative bleeding, given the patient's need for additional IV followed by oral anticoagulation in the postoperative period. The omentum only covered portion of the incision and pelvic wall at this point, and given this, the Interceed mesh was selected and placed underneath the incision, and from there, down toward the abdominal wall to displace the viscera away and limit recurrent adhesion formation. The midline fascia was then approximated with #2 Vicryl stitch. The fascia did come together quite nicely with minimal tension. Also, there was some possibility this would remain intact without additional hernia formation. Obviously, in this case, an additional mesh will not be placed given the open bowel. At this point, the subcutaneous tissue was approximated with some 3-0 and 4-0 Vicryl stitch deep and the skin with lewis. A Duc-Haque drain had been placed in the right mid abdomen, taken down into the pelvis to try to detect any postoperative bleeding. The patient also received, prior to the closure, bilateral transversus abdominis plane blocks, and the skin was closed with lewis. One additional note is a quite massive-appearing cutaneous hemangioma located immediately adjacent to the right side of the upper aspect of the incision, and with any manipulation, this appeared to be bleeding. Given this, this was excised through the skin and subcutaneous tissue level and that excision line designed so it could be incorporated with the skin lewis. The hemangioma measured 5 mm. At this point, dressings were applied. The patient was taken to the recovery room in satisfactory condition. There were no evident complications. Payam Zamora MD /[id number]
[2019-11-16] MEDS: Heparin Sodium/D5W 25,000 UNITS/500 ML BAG IV SCH (21:08)
[2019-11-16] MEDS ORDERED: Sodium Chloride 0.65% Nasal Spray 45 ML Bottle NAS PRN (21:10)
[2019-11-16] MEDS: Cyclobenzaprine 10 MG Tab PO PRN (21:28)
[2019-11-16] MEDS: Pantoprazole 40 MG Tab.CR PO SCH (21:34)
[2019-11-16] MEDS: Ondansetron 4 MG Tab.DIS PO PRN (22:39)
[2019-11-17] MEDS: HYDROmorphone 2 MG Tab PO PRN ×3 (02:13→16:56)
[2019-11-17] MEDS: Magnesium Sulfate/Water 2 GM in Premix Bag 1 BAG IV SCH ×4 (02:22→20:44)
[2019-11-17] MEDS: Acetaminophen 325 MG Tab PO SCH ×4 (04:24→21:52)
[2019-11-17] MEDS: cefOXitin 2 GM in Sodium Chloride 0.9% 50 ML IV SCH ×4 (04:25→20:44)
--- NOTE | 2019-11-17 08:58 | PN ---
DATE OF SERVICE: 11/17/2019 SUBJECTIVE: Leda's vital signs have been stable. She has been very reluctant to ambulate or use her IS after much encouragement from nursing staff. She is not passing any flatus. Oral intake 2039 and urine output 2099. DIDI drain put out 10 mL of a light red drainage. Leda reports pain under her right breast, rib area, and lateral rib area. States she feels it is more bone pain and attributes it to the binder. She does feel that the binder does help with movement. LABORATORY DATA: PT 13.1, INR 1.23, APTT 47.9. Potassium is 4.7, and phosphorus is 4.8. She is getting magnesium riders. OBJECTIVE: GENERAL: Leda Iverson is a pleasant 69-year-old female. She was sleeping with the CPAP on, did wake up easily. VITAL SIGNS: TPR is 97.6, 60, 18, blood pressure 114/61, O2 sats by pulse oximetry 95% on no oxygen. HEENT: Negative. NECK: Supple. HEART: Regular rate and rhythm. LUNGS: Clear. SKIN: There are no open skin abrasions noted. Areas of concern on right rib. ABDOMEN: Aquacel dressing is clean and dry. It was changed yesterday. Abdominal binder is on. DIDI drain intact and draining a light red drainage as above. EXTREMITIES: SCDs are on. EXTREMITIES: There is no peripheral edema appreciated. Yesterday, she did wear her BRENDA hose during the day. ASSESSMENT: 1. Exploratory laparotomy with: a. Reconstruction of small bowel volvulus with closure of internal hernia. b. Revision of the jejunojejunostomy component of the Joyce-en-Y gastric bypass. c. Repair of recurrent incarcerated incisional hernia. d. Removal of intraperitoneal mesh. e. Placement of Interceed mesh. f. Excision of abdominal wall hemangioma. POSTOPERATIVE DIAGNOSES: 1. Partial small bowel obstruction secondary to small bowel volvulus. 2. Decompression of small bowel at the jejunojejunostomy. 3. Excision of intraabdominal adhesions. 4. Recurrent incarcerated incisional hernia. 5. Potentially contaminated intraperitoneal mesh. 6. Bloody hemangioma, right upper abdominal wall 0.5 cm. Date of surgery: 11/14/2019. Surgeon: Payam Zamora MD. PLAN: 1. With the PT, INR, and APTT decreasing, recommend continuation of the IV heparin at same dose per protocol. 2. Increase Coumadin 1 time today at 12.5 mg. 3. The patient is getting a multivitamin bag IV daily. Remove the vitamin K from that current MVI bag. 4. MiraLax 119 g 1 time today. 5. Encouraged ambulation and use of incentive spirometer. Stressed the importance of avoiding any postop complications. 6. We will evaluate p.r.n. or in a.m. Kat Lopez PA-C /[id number]
[2019-11-17] MEDS ORDERED: Polyethylene Glycol 3350 Powder 119 GM Bottle PO ONE (09:00)
[2019-11-17] MEDS: Docusate Sodium 100 MG Cap PO SCH ×2 (10:41→20:45)
[2019-11-17] MEDS: Bisacodyl 5 MG Tab PO SCH ×2 (10:41→20:45)
[2019-11-17] MEDS ORDERED: Warfarin 5 MG Tab PO ONE (13:00)
[2019-11-17] MEDS ORDERED: Warfarin 10 MG, Warfarin 2.5 MG PO SCH ×2 (13:00)
[2019-11-17] MEDS ORDERED: Warfarin 2.5 MG Tab PO SCH (13:00)
[2019-11-17] MEDS ORDERED: MVI, Adult with Vitamin K 10 ML, Thiamine 200 MG, Chromium/Copper/Mang/Selen/Zn 1 ML in... IV SCH ×4 (16:00)
[2019-11-17] MEDS: Cyclobenzaprine 10 MG Tab PO PRN (16:56)
[2019-11-17] MEDS: Pantoprazole 40 MG Tab.CR PO SCH (20:45)
[2019-11-17] MEDS: Heparin Sodium/D5W 25,000 UNITS/500 ML BAG IV SCH (21:53)
[2019-11-18] MEDS: Cyclobenzaprine 10 MG Tab PO PRN ×2 (00:06→10:24)
[2019-11-18] MEDS: Magnesium Sulfate/Water 2 GM in Premix Bag 1 BAG IV SCH (02:03)
[2019-11-18] MEDS: cefOXitin 2 GM in Sodium Chloride 0.9% 50 ML IV SCH ×2 (02:03→10:23)
[2019-11-18] MEDS: Acetaminophen 325 MG Tab PO SCH ×4 (05:11→21:34)
[2019-11-18] MEDS: Docusate Sodium 100 MG Cap PO SCH ×2 (10:17→21:34)
[2019-11-18] MEDS: Bisacodyl 5 MG Tab PO SCH ×2 (10:17→21:34)
[2019-11-18] MEDS ORDERED: Warfarin 5 MG, Warfarin 2.5 MG PO SCH ×2 (13:00)
[2019-11-18] MEDS: HYDROmorphone 2 MG Tab PO PRN (15:54)
[2019-11-18] MEDS: Pantoprazole 40 MG Tab.CR PO SCH (21:34)
[2019-11-18] MEDS: Heparin Sodium/D5W 25,000 UNITS/500 ML BAG IV SCH (22:45)
[2019-11-18] MEDS: Ondansetron 4 MG Tab.DIS PO PRN (23:14)
[2019-11-19] MEDS: Ondansetron 4 MG/2 ML SDV IVPUSH PRN ×2 (03:04→08:10)
[2019-11-19] MEDS: Acetaminophen 325 MG Tab PO SCH ×4 (04:06→21:50)
[2019-11-19] MEDS: Dextrose 5%-Lactated Ringers 1,000 ML IV SCH ×2 (08:09→18:16)
[2019-11-19] MEDS: Bisacodyl 5 MG Tab PO SCH ×2 (08:29→20:45)
[2019-11-19] MEDS: Docusate Sodium 100 MG Cap PO SCH ×2 (08:29→20:45)
[2019-11-19] MEDS: HYDROmorphone 2 MG Tab PO PRN ×2 (08:34→20:45)
[2019-11-19] MEDS: Metoclopramide 10 MG/2 ML SDV IVPUSH SCH ×3 (09:15→20:46)
[2019-11-19] MEDS ORDERED: Warfarin 5 MG Tab PO ONE (10:00)
[2019-11-19] MEDS ORDERED: Warfarin 5 MG Tab PO SCH (13:00)
[2019-11-19] MEDS: Cyclobenzaprine 10 MG Tab PO PRN ×2 (15:21→21:50)
[2019-11-19] MEDS: Pantoprazole 40 MG Tab.CR PO SCH (20:45)
[2019-11-20] MEDS: Acetaminophen 325 MG Tab PO SCH ×2 (04:20→09:41)
[2019-11-20] MEDS: Metoclopramide 10 MG/2 ML SDV IVPUSH SCH ×2 (04:21→09:42)
--- NOTE | 2019-11-20 05:18 | CRLCR ---
INDICATION: Postop ileus TECHNIQUE: Abdomen 2 view. COMPARISON: 11/15/2019 FINDINGS: Bowel: Minimal air distended small bowel loops. Soft tissues: No sign of free air. No sign of soft tissue mass. No suspicious calcifications. Surgical drain noted in the pelvis. Bones: Unremarkable for age. IMPRESSION: Minimally air distended small bowel loops. Dictated by Flako Connors MD @ 11/20/2019 5:17:00 AM Dictated by: Flako Connors MD @ 11/20/2019 05:17:10 (Electronically Signed)
[2019-11-20] MEDS: Docusate Sodium 100 MG Cap PO SCH (09:41)
[2019-11-20] MEDS: Bisacodyl 5 MG Tab PO SCH (09:41)
[2019-11-20] MEDS: HYDROmorphone 2 MG Tab PO PRN (11:01)
--- NOTE | 2019-11-20 12:11 | PN ---
DATE OF SERVICE: 11/18/2019 The patient has been afebrile with stable vital signs. She is still a little bit slow in terms of moving. Protime remained somewhat subtherapeutic at 16.7. Given this, we will continue the heparin today, give her a little higher dose of Coumadin at 12 mg to see if we can get that bumped up into a therapeutic range, and anticipate probable discharge tomorrow. Otherwise, we will continue to maximize activity and work with pulmonary toilet. Payam Zamora MD /[id number]
--- NOTE | 2019-11-20 13:08 | PN ---
DATE OF SERVICE: 11/19/2019 The patient has been afebrile with stable vital signs. She has had some emesis overnight. This appeared to be slowing down somewhat at this point. I suspect she may have some edema at the anastomosis, and we will back down to a step-2 diet today. Otherwise, her pro-time is therapeutic, and we will discontinue the heparin and give her 5 mg of Coumadin a day and q.6 hours scheduled dose. Scheduling abdominal x-ray, along with some labs in the morning. Otherwise, maximize activity and work with pulmonary toilet. Payam Zamora MD /[id number]
--- NOTE | 2019-11-20 13:26 | DISCH ---
ADMISSION DIAGNOSES: 1. Partial small bowel obstruction, status post Joyce-en-Y gastric bypass surgery. 2. Unspecified surgical malabsorption. 3. B12 deficiency. 4. Mesenteric thrombophlebitis. 5. On Coumadin for chronic anticoagulation therapy. 6. Previous deep vein thromboses. DISCHARGE DIAGNOSES: 1. Exploratory laparotomy with: a. Reduction of small bowel volvulus and closure of internal hernia. b. Revision of jejunojejunostomy component of the Joyce-en-Y gastric bypass. c. Repair of recurrent incarcerated incisional hernia. d. Removal of intraperitoneal mesh. e. Placement of Interceed mesh to limit recurrent adhesion formation between the pelvic and abdominal jernigan and underlining viscera. 2. Excision of abdominal wall hemangioma. POSTOPERATIVE DIAGNOSES: 1. Partial small bowel obstruction secondary to small bowel volvulus. 2. Decompression of small bowel of the jejunojejunostomy. 3. Extensive intraabdominal adhesions. 4. Recurrent incarcerated incisional hernia. 5. Potentially contaminated intraperitoneal mesh. 6. Bleeding cutaneous hemangioma, right upper abdomen, adjacent to midline incision. HOSPITAL COURSE: Leda Iverson is a 69-year-old female who drove herself from [facility] to [facility] with abdominal pain. She was admitted on 11/13/2019, and she had surgery on 11/14/2019. She had no operative complications. On postop day #1, she had her aPTT, PT, and INR checked and was treated with IV heparin drip, along with oral Coumadin. She was started on a step-2 gastric bypass diet. IV was decreased, given Lasix 10 mg one time and started on oral pain medication. Her magnesium was replaced as well as K-Phos. On 11/16/2019, postop day #2, Coumadin was adjusted and KCl was replaced. IV continued to run at O due to IV heparin. She was started on step-3 gastric bypass diet and started on bowel stimulation. On postop day #2; PT, INR, and aPTT levels were low. She was continued on IV heparin, given oral Coumadin and MiraLAX 119 g one time. On postop day #4, Coumadin was increased to 12 mg from 10. She started having bowel movements. Diet was decreased. She had an episode of vomiting and distention. This did resolve. Her diet was backed down to step-2, and she was given scheduled Reglan. An abdominal x-ray on 11/20/2019, showed minimally air distended small bowel. She was having bowel movements. Pain was managed. She had no fever. Oral intake and output were adequate. She was able to be discharged to home. PHYSICAL EXAMINATION: GENERAL: Leda Iverson is a 69-year-old female, alert and orientated. VITAL SIGNS: Height is 5 feet 6 inches. Weight is 199 pounds. BMI is 32.2. TPR 96, 68, 18, and blood pressure 121/70. HEENT: Negative. NECK: Supple. HEART: Regular rate and rhythm. LUNGS: Clear. ABDOMEN: [place] intact. DIDI drain will be removed and a 4x4 will be placed over that. Abdominal binder is on. EXTREMITIES: Without peripheral edema. DISPOSITION: Discharged to home. DISCHARGE CONDITION: Stable and improving. FOLLOWUP: Followup appointment with Kta Lopez PA-C, on 11/28/2019, at 11 a.m. She is to have a PT and INR checked at 10:45 a.m., and this will be scheduled with the [facility] in [facility] before appointment. DISCHARGE MEDICATIONS: Home Medications: 1. Tylenol 650 mg oral q.6 hours p.r.n. pain. 2. Dilaudid 2 mg every 4 hours p.r.n. pain, #42. 3. She is to resume her Coumadin tomorrow. It should be held today. Coumadin will restart with her normal dosing schedule. Coumadin is 5 mg oral as directed on Wednesday, Wednesday, , Wednesday, and Wednesday; and 7.5 mg as directed on Wednesday and Wednesday. 4. Amitriptyline 200 mg oral at bedtime. 5. Ferrous sulfate one tablet oral daily. DISCHARGE DIET: Step-2 gastric bypass diet with cereal for 2 weeks. Drink 8 to 10 glasses of water a day. ACTIVITY: No lifting over 10 pounds for 6 weeks. Other activity: Walk at least 6 times daily inside your home. Driving after discharge, do not drive for 1 week and while on pain medication. Shower/bathing, may shower. DISCHARGE INSTRUCTIONS: Notify provider if any fever, increased pain, nausea, or vomiting. Keep site clean and dry. Wound incision care. Wear abdominal binder for 4 weeks and then as tolerated. Special Instructions: 1. Use incentive spirometer 10 times every hour while awake. 2. For every hour in the car, stop and walk around about 10 minutes to avoid getting a blood clot.
== END 2019-11-20 11:20 | disposition home or self-care (01) | DRG 326 ==
LOC: JP.MS 19:24
PROVIDERS: ADMIT Surgery; ATTEND Surgery
PROC: 0D160ZA Bypass Stomach to Jejunum, Open Approach (ICD-10-PCS; principal; 2019-11-14)
PROC: 0DNU0ZZ Release Omentum, Open Approach (ICD-10-PCS; 2019-11-14)
PROC: 0WQF0ZZ Repair Abdominal Wall, Open Approach (ICD-10-PCS; 2019-11-14)
PROC: 0WBF0ZZ Excision of Abdominal Wall, Open Approach (ICD-10-PCS; 2019-11-14)
PROC: 0DS80ZZ Reposition Small Intestine, Open Approach (ICD-10-PCS; 2019-11-14)
PROC: 3E0M05Z Introduction of Adhesion Barrier into Peritoneal Cavity, Open Approach (ICD-10-PCS; 2019-11-14)
PROC: 0D7A8ZZ Dilation of Jejunum, Via Natural or Artificial Opening Endoscopic (ICD-10-PCS; 2019-11-14)
DX: K56.2 Volvulus (principal); K55.069 Acute infarction of intestine, part and extent unspecified; I81 Portal vein thrombosis; K43.0 Incisional hernia with obstruction, without gangrene; K91.2 Postsurgical malabsorption, not elsewhere classified; K56.51 Intestinal adhesions [bands], with partial obstruction; D18.03 Hemangioma of intra-abdominal structures; Z79.01 Long term (current) use of anticoagulants; Z86.718 Personal history of other venous thrombosis and embolism; Z88.0 Allergy status to penicillin; Z79.899 Other long term (current) drug therapy; Z90.49 Acquired absence of other specified parts of digestive tract
CPT/HCPCS: 36415; 74019; 74240; 80053; 82607; 82728; 82746; 83735; 83880; 84100; 85025; 85027; 85610; 85730; 97110-GP; 97140-GP; 97161-GP; 97530-GP; 97535-GP; A9270-GY; C9113; J0171; J0330; J0694; J1100; J1644; J1940; J2001; J2175; J2185; J2405; J2704; J2710; J2765; J2795; J3010; J3410; J3411; J3420; J3475; J3480; J3490; J7050; J7120; J7121; Q9967